=== PATIENT | female | born 1965 | race Caucasian/White ===

== ENCOUNTER → 2017-08-10 | Day surgery (SDC) | payer OTHER ==
[~2017-08-10] VITALS: Ht 157.5 cm; Wt 54.4 kg
[2017-08-10 08:18] VITALS: BP 150/82
[2017-08-10 08:34] VITALS: BP 150/82
[2017-08-10 08:37] VITALS: BP 150/82
[2017-08-10 08:40] VITALS: BP 143/84
--- NOTE | 2017-08-10 08:40 | Procedure Note ---
Procedure detail Date of procedure: 08/10/17 Anesthesiologist: Butch Mcclure Complications: None Pre-procedure diagnosis: Myofascial pain syndrome bilateral thoracic paraspinous muscles. Post-procedure diagnosis: Same Indications for procedure: Very pleasant 50-year-old white female the comes our procedure clinic today for trigger point injections of the bilateral thoracic spine paraspinous muscles. Patient has extreme point tenderness over the muscles bilaterally upon examination. Patient denies any radicular component. Procedure detail: Details of procedure is going to the patient for the patient was taken to the procedure room and placed in the sitting position. The area over the thoracic spine was cleansed using chlorhexidine as a cleansing solution. Markers were placed at the bilateral thoracic paraspinous muscles in 4 locations. Each location was injected with 2 mL of a solution of 0.25 percent Marcaine +1 percent lidocaine and 40 mg of Depo-Medrol using a 25-gauge needle. Patient all of the procedure without difficulty. There were no complications. Plan and disposition: Patient was evaluated 10 minutes post procedure. She is reporting 75 percent improvement terms her thoracic spine pain. She'll return to see us in the pain clinic for further evaluation. at [id number]
== END ==
LOC: PM 08:00 → EDBD 10:30
PROC: 3E0233Z Introduction of Anti-inflammatory into Muscle, Percutaneous Approach (ICD-10-PCS; principal; 2017-08-10)
PROC: 3E023BZ Introduction of Anesthetic Agent into Muscle, Percutaneous Approach (ICD-10-PCS; 2017-08-10)
DX: M79.1 Myalgia (principal)

== ENCOUNTER → 2017-09-13 | Outpatient (CLI) | payer BC ==
[~2017-09-13] MED LIST: AMITRIPTYLINE H10 MG PO; CYCLOBENZAPRINE5 MG PO; GABAPENTIN100 M1 PO
--- NOTE | 2017-09-14 09:36 | RADIOLOGY REPORT PS360 ---
MRI-T-SPINE W/O HISTORY: Mid back pain with muscle spasm THORACIC BACK PAIN ORDERING PHYSICIAN: DHARMESH CARVAJAL CRNA PATIENT AGE: 52 years COMPARISON: None TECHNIQUE: Standard multiplanar multiecho sequences are performed without contrast. 3-D MIP and myelographic images are also rendered and reviewed FINDINGS: There is normal alignment. No fracture or dislocation. No destructive process. The spinal cord has an unremarkable appearance No disc herniation or canal stenosis. No significant degenerative change. There is some minimal disc desiccation and mid thoracic spine with minimal anterior osteophytes. IMPRESSION: 1. Minimal thoracic spondylosis. 2. No acute finding. No evidence of disc herniation canal stenosis or any other extradural defects.
== END ==
LOC: RAD 07:54
DX: M54.6 Pain in thoracic spine (principal)